=== PATIENT | female | born 1980 | race Hispanic/Latino ===

== ENCOUNTER 2019-04-24 19:08 | Emergency (ER) | payer BC ==
[~2019-04-24 19:08] MED LIST: LEVO500T2 PO; TYL3 PO
[2019-04-24 19:55] LABS: APPEARANCE,URINE Cloudy (CLEAR); BILIRUBIN,URINE Negative (NEGATIVE); COLOR,URINE Yellow (YELLOW); GLUCOSE, URINE (UA) Negative (NEGATIVE); KETONES,URINE Trace mg/dL (NEGATIVE); LEUKOCYTE ESTERASE ,URINE Negative (NEGATIVE); NITRATE,URINE Negative (NEGATIVE); OCCULT BLOOD,URINE Large (NEGATIVE); PH,URINE 6.5 (5.0-8.0); PROTEIN,URINE Trace mg/dL (NEGATIVE)
[2019-04-24 19:57] LABS: HCG,QUAL RESULT NEGATIVE (NEGATIVE)
[2019-04-24] MEDS ORDERED: LIDOCAINE HCL 2% VISCOUS 15 ML UDCUP ONE (20:11)
[2019-04-24] MEDS ORDERED: MAG HYDROX/AL HYDROX/SIMETH ES 30 ML SUSP UDCUP ONE (20:11)
[2019-04-24] MEDS ORDERED: DICYCLOMINE HCL 10 MG/ML 2ML AMP IM ONE (20:12)
[2019-04-24 20:29] LABS: BACTERIA,URINE Moderate /HPF (None Seen); MUCUS,URINE Few LPF (None Seen); SQUAMOUS EPITHELIAL CELL,UR 0-2 /HPF (0-2)
[2019-04-24 20:42] LABS: AMPHET/METH SCREEN,URINE NEGATIVE (NEGATIVE); BARBITURATE SCREEN, URINE NEGATIVE (NEGATIVE); BENZODIAZEPINES SCREEN,URINE NEGATIVE (NEGATIVE); CANNABINOID SCREEN,URINE NEGATIVE (NEGATIVE); COCAINE SCREEN,URINE NEGATIVE (NEGATIVE); OPIATE SCREEN,URINE NEGATIVE (NEGATIVE); PHENCYCLIDINE SCREEN,URINE NEGATIVE (NEGATIVE)
[2019-04-24] MEDS ORDERED: SUCRALFATE 1 GM TABLET ONE (21:24)
== END 2019-04-24 21:47 | disposition home or self-care (01) ==
LOC: EDH 19:08
DX: K29.00 Acute gastritis without bleeding (principal); Z98.890 Other specified postprocedural states
CPT/HCPCS: 80305; 81001; 81025; 96372; 99284; J0500

== ENCOUNTER 2020-07-24 08:18 | Day surgery (SDC) | payer BC ==
[2020-07-23 15:54] VITALS: BP 159/73
[2020-07-23 15:56] LABS: BASOPHILS % (AUTO) 0.2 % (0.0-5.0); EOSINOPHILS % (AUTO) 5.7 % (0.0-8.0); HEMATOCRIT 34.8 % (36-48); LYMPHOCYTES % (AUTO) 22.2 % (21.0-51.0); MEAN CORPUSCULAR HEMOGLOBIN 27.8 pg (27.0-33.0); MEAN CORPUSCULAR HGB CONC 33.3 g/dL (32.0-36.0); MEAN CORPUSCULAR VOLUME 83.3 fL (79-99); MONOCYTES % (AUTO) 7.7 % (3.0-13.0); PLATELET COUNT (AUTO) 386 K/uL (130-400); RED BLOOD CELL COUNT(AUTO) 4.18 MIL/uL (4.00-5.50)
[2020-07-24] VITALS (16 sets, daily range): BP systolic 96–143; BP diastolic 50–91
[~2020-07-24] VITALS: Ht 160 cm; Wt 90.3 kg
[2020-07-24] MEDS ORDERED: CALDOLOR 800MG+NS 250ML 250 ML IV ONE (08:54)
[2020-07-24] MEDS: CALDOLOR 800MG+NS 250ML 250 ML IV SCH ×2 (09:00→11:20)
[2020-07-24] MEDS ORDERED: LIDOCAINE PF 2% 5ML ABBOJECT ONE (09:03)
[2020-07-24] MEDS ORDERED: MIDAZOLAM HCL 1 MG/ML 2ML VIAL ONE (09:03)
[2020-07-24] MEDS ORDERED: SUCCINYLCHOLINE 200MG/10ML SYR ONE (09:03)
[2020-07-24] MEDS ORDERED: DEXAMETHASONE SOD PHOSPHATE 10MG/ML 1ML VIAL ONE (09:03)
[2020-07-24] MEDS ORDERED: ROCURONIUM 10MG/1ML SYR 10 MG/ML ML ONE (09:04)
[2020-07-24] MEDS ORDERED: FENTANYL CITRATE PF 50 MCG/1 ML 2ML VIAL ONE (09:04)
[2020-07-24] MEDS ORDERED: LACTATED RINGERS 1000ML 1,000 ML IV ONE (09:04)
[2020-07-24] MEDS ORDERED: ONDANSETRON HCL 4 MG/2 ML VIAL ONE (09:04)
[2020-07-24] MEDS ORDERED: PROPOFOL 10 MG/ML 20ML VIAL IV ONE (09:04)
[2020-07-24] MEDS: CEFAZOLIN SODIUM 1 GM VIAL IVP PRN ×2 (09:13→11:10)
== END 2020-07-24 13:00 | disposition home or self-care (01) ==
LOC: DAH 08:18
PROVIDERS: ATTEND Obstetrics & Gynecology
DX: Z30.432 Encounter for removal of intrauterine contraceptive device (principal); Z20.822 Contact with and (suspected) exposure to COVID-19; Z98.891 History of uterine scar from previous surgery; E66.01 Morbid (severe) obesity due to excess calories; Z68.37 Body mass index [BMI] 37.0-37.9, adult; Z82.49 Family history of ischemic heart disease and other diseases of the circulatory system; Z83.3 Family history of diabetes mellitus
CPT/HCPCS: 36415; 58301; 84703; 85025; 86850; 86900; 86901; 87426; A4213; A4215; A4216; A4221; A4222; A4223 ×3; A4335; A4351; A4355; A4649; A4663; A6260; C1769; J0330; J0690; J1100; J1741; J2001; J2250; J2405; J2704; J3010; J7030; J7120 ×2